=== PATIENT | male | born 1985 | race Hispanic/Latino ===

== ENCOUNTER → 2022-06-17 | Outpatient (CLI) | payer BC ==
[2022-06-17 14:36] LABS: ALBUMIN 4.5 g/dL (3.5-5.0); BILIRUBIN,DIRECT 0.5 mg/dL (0.0-0.5)
== END ==
LOC: LAB 13:45
PROVIDERS: ATTEND Podiatrist Foot & Ankle Surgery
DX: B35.1 Tinea unguium (principal)
CPT/HCPCS: 36415; 80076